=== PATIENT | female | born 1970 | race Caucasian/White ===

== ENCOUNTER 2017-04-22 12:15 | Emergency (ER) | payer OTHER ==
[~2017-04-22] VITALS: Ht 157.5 cm; Wt 61.2 kg
--- NOTE | ~2017-04-22 | CT16 ---
[facility]. [facility] A Service of [facility] & [facility] RADIOLOGY TEXT RESULTS PATIENT: JIM CRUZ LOCATION: SED : 72 UNIT #: [id number] AGE: [address]: DONOVAN MAY SEX: F ORDER DR: [id number] [address] [address] [id number] MR#: [id number] #: [id number] NAME: JIM CRUZ. : 1970 SEX: F STUDY DATE/TIME: 04/22/2017 14:15 UNIT: SED ROOM: STUDY DESCRIPTION: CT Angio Chest for PE Attending Physician: Maria C Cook Ordering Physician: Maria C Cook Primary Care Physician: [facility], [facility] MEDICAL IMAGING REPORT This report is preliminary unless electronic signature is present. EXAM CT pulmonary angiography HISTORY [place]. [place]. Burning in chest and throat since last night 16-hour flight. TECHNIQUE CT pulmonary angiography performed with intravenous administration of 100 mL Isovue-370. Three-dimensional reconstructions performed through pulmonary arteries. This CT exam was performed with one or more of the following radiation dose reduction techniques: Automatic exposure control, adjustment of mA and/or kV according to patient size and iterative reconstruction. COMPARISON No comparisons FINDINGS Patient appears to be status post thyroidectomy. There is no axillary adenopathy. Multiple small mediastinal and hilar lymph nodes. There is a 12 mm short-axis subcarinal node. No other clearly pathologically enlarged lymph nodes. Heart upper limits of normal in size. No pleural effusions. Indeterminate 1.8 cm hypodense structure in segment 4 of the liver. Remainder of visualized liver unremarkable. Uncomplicated cholelithiasis. Spleen, pancreas, adrenal glands unremarkable. Punctate approximately 2 mm nonobstructing calculus mid left kidney. Kidneys otherwise unremarkable. No retroperitoneal adenopathy. The esophagus, stomach, small bowel and colon unremarkable in visualized extent. Lungs show dependent atelectasis. There is no clear indication of acute infectious or inflammatory disease. There is no pneumothorax. There is mild emphysema. Pulmonary arteries are well opacified. No PE. [facility] A Service of [facility] & [facility] RADIOLOGY TEXT RESULTS PATIENT: JIM CRUZ [place] [facility] [place] [birth year] UNIT #: [id number] AGE: [address]: DONOVAN MAY SEX: F ORDER DR: No aortic aneurysm or dissection. The visualized aortic branch vessels are patent. Bony structures are unremarkable. IMPRESSION 1. No PE. No aortic aneurysm or dissection. 2. The lungs show dependent atelectasis. There is some evidence of emphysema. No indication of acute infectious or inflammatory disease, pleural effusion or pneumothorax and no suspicious nodule. 3. Small mediastinal lymph nodes. There is a single clearly enlarged node subcarinal region measuring 12 mm in short axis. Presumed benign in the absence of risk factors. Correlation with any prior studies would be useful if available. 4. Prior thyroidectomy. Correlate with history. 5. 1.8 cm indeterminate hypodense structure segment 4 of liver. Not clearly a simple cyst. Possibly a small hemangioma. Again in absence of risk factors benign etiology favored. Best fully characterized with elective multiphase contrast-enhanced MRI or CT. 6. Punctate perhaps 2 mm nonobstructing calculus mid left kidney. 7. Uncomplicated cholelithiasis. Dictated by... Micha Truong M.D. THIS IS AN ELECTRONICALLY VERIFIED REPORT Micha Truong M.D. at 04/24/2017 4:57 PM Trevor TD: 04/23/2017 12:20 JOB #: [id number] MEDICAL IMAGING REPORT Page 1 of 1
--- NOTE | ~2017-04-22 | EKG ---
PATIENT: JIM CRUZ UNIT #: [id number] Ventricular Rate: 68 BPM Atrial Rate: 68 BPM P-R Interval: 142 ms QRS Duration: 70 ms Q-T Interval: 402 ms QTC Calculation(Bezet): 427 ms P [place]: 17 degrees Calculated R [place]: 16 degrees Calculated T [place]: 14 degrees Diagnosis Line: Normal sinus rhythm Diagnosis Line: Normal ECG Diagnosis Line: No previous ECGs available Diagnosis Line: Confirmed by LORETTA ERIC MD ([id number]) on 04/25/2017 Diagnosis Line: 7:31:16 PM INTERPRETING MD: HERNESTO SCOTT
[~2017-04-22 12:15] MED LIST: ANTIBIOTIC; CIPRO PO; FLOMAX0.4 M1 PO; LEVAQUIN750 M1 PO; SYNTHROID; VOLTAREN50 MG PO; ZOFRAN ODT4 MG PO
[2017-04-22 12:59] LABS: BASOPHIL% 0.6 % (0-2.5); EOSINOPHIL# 0.1 X10e3 (0-0.7); EOSINOPHIL% 1.9 % (0.0-7.0); HEMATOCRIT 34.3 % (35.0-45.0); HEMOGLOBIN 10.8 gm/dL (12.0-16.0); LYMPHOCYTE# 2.5 X10e3 (1.0-3.5); LYMPHOCYTE% 39.5 % (17.0-45.0); MEAN CELL VOLUME 75.2 FL (83-96); MEAN CORPUSCULAR HEMOGLOBIN 23.8 PG (28-34); MEAN CORPUSCULAR HGB CONC 31.7 g/dL (30-36); MEAN PLATELET VOLUME 9.4 FL (6.5-11.5); MONOCYTE# 0.6 X10e3 (0-1.0); MONOCYTE% 9.1 % (3.0-12.0); NEUTROPHIL% 48.9 % (40-75); PLATELET COUNT 278 X10e3 (140-420); RED BLOOD COUNT 4.56 X10e (3.90-5.30); RED CELL DISTRIBUTION WIDTH 14.6 % (11.0-15.5); WHITE BLOOD COUNT 6.2 X10e3 (4.0-10.5)
[2017-04-22 13:04] LABS: DIFF IND NO
[2017-04-22 13:07] LABS: POC - CKMB <1.0 ng/mL (0.0-7.9)
[2017-04-22 13:08] LABS: POC - TROPONIN <0.05 ng/mL (<=0.05)
[2017-04-22 13:09] LABS: PROTHROMBIN TIME (PATIENT) 11.6 SECONDS (9.5-12.4)
[2017-04-22 13:16] LABS: PARTIAL THROMBOPLASTIN TIME 27.6 SECONDS (25.6-38.1)
[2017-04-22 13:17] LABS: ALBUMIN SERUM 3.9 g/dL (3.5-5.0); BILIRUBIN, DIRECT 0.1 mg/dL (0.0-0.2); BILIRUBIN,INDIRECT 0.4 mg/dL (0.0-0.9); BILIRUBIN,TOTAL 0.5 mg/dL (0.2-2.0); CALCIUM SERUM 8.5 mg/dL (8.4-10.2); CREATININE SERUM 0.6 mg/dL (0.6-1.4); GLOM FILT RATE Estimated 109.3 mL/min (>60); POTASSIUM 3.4 mmol/L (3.5-5.1); PROTEIN TOTAL SERUM 7.5 g/dL (6.0-8.3)
== END 2017-04-22 16:21 | disposition home or self-care (01) ==
LOC: SED 12:15
PROVIDERS: Physician Assistant
DX: K21.9 Gastro-esophageal reflux disease without esophagitis (principal); Z79.899 Other long term (current) drug therapy
CPT/HCPCS: 36415; 71275; 80048; 80076; 82553; 83874; 84484; 84703; 85025; 85610; 85730; 93005; 99285; Q9967